=== PATIENT | male | born 1990 | race Caucasian/White ===

== ENCOUNTER 2020-03-08 08:02 | Emergency (ER) | payer OTHER ==
[2020-03-08] MEDS ORDERED: Amoxicillin/Clavulanate K 875-125 MG Tab PO ONE (08:30)
--- NOTE | 2020-03-08 08:32 | EDM.PDOC ---
ED [facility] GENERAL MEDICAL PROBLEM - General Chief Complaint: Bite:Animal, Insect Stated Complaint: DOG BITE Time Seen by Provider: 03/08/20 08:35 Source of Information: Reports: Patient History Limitations: Reports: No Limitations - History of Present Illness INITIAL COMMENTS - FREE TEXT/NARRATIVE: Patient is a 29-year-old male no significant past medical history presenting with chief complaint of dog bite. 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 He also obtained a superficial abrasion to his left knee but it experienced no other injuries. Onset of injury was just prior to arrival. Patient complains of moderate pain to the area without radiation. Pain is burning in nature. Tetanus is not up-to-date. The dog is a police dog and will be able to be observed. The dog is up-to- date on all rabies and other vaccinations. Pmhx: None Pshx: None Family Hx: noncontributory Smoking history? no Etoh use? Socially Drug use? none In addition to that documented in the HPI above, the additional ROS was obtained : Constitutional: Denies fevers or chills CV: Denies chest pain Resp: Denies SOB GI: Denies vomiting or diarrhea : Denies painful urination MSK: Denies recent trauma Skin: Per HPI I have reviewed the triage vital signs Const: Well nourished, well developed, appears stated age Eyes: PERRL, no conjunctival injection HENT: NCAT, Neck supple without meningismus CV: RRR, Warm, well-perfused extremities RESP: CTAB, Unlabored respiratory effort GI: soft, non-tender, non-distended, no masses MSK: No gross deformities appreciated Skin: Numerous superficial lacerations to the left lower back area. No foreign bodies visualized. No active bleeding noted. The wounds are well approximated. Additional superficial abrasion to the left lateral knee area. Warm, dry. 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 Sensation and motor function of extremities grossly intact. Psych: Appropriate mood and affect Assessment and plan: Patient is a 29-year-old male presenting with a dog bite. No indication for suturing at this time. No foreign bodies visualized. The wounds were copiously irrigated and a sterile dressing was applied. Patient updated tetanus and started on prophylactic antibiotics. Patient given return precautions. No other bodily trauma. Patient will be discharged instructed to follow-up with PCP in the next 1 to 2 days for wound recheck. All questions addressed and answered. Patient agrees with plan. - Related Data Allergies Allergy/AdvReac Type Severity Reaction Status Date / Time No Known Allergies Allergy Verified 04/24/16 23:42 Home Meds: Home Meds Amoxicillin/Potassium Clav [Augmentin 875-125 Tablet] 1 each PO Q12H #13 tablet 03/08/20 [Rx] Past Medical History - Past Surgical History GI Surgical History: Reports: Appendectomy Social & Family History - Family History Family Medical History: Noncontributory ED ROS GENERAL - Review of Systems Review Of Systems: See Below ED EXAM, ANIMAL BITE - Physical Exam Exam: See Below Course - Orders/Labs/Meds Meds: Medications Discontinued Medications Generic Name Dose Route Start Last Admin Trade Name Freq PRN Reason Stop Dose Admin Amoxicillin/Clavulanate Potassium 1 tab 03/08/20 08:30 Augmentin 875 Mg/125 Mg PO 03/08/20 08:31 ONETIME ONE Departure - Departure Time of Disposition: 08:31 Disposition: Home, Self-Care 01 Clinical Impression: Open wound of lower back due to dog bite - Discharge Information Prescriptions: Amoxicillin/Potassium Clav [Augmentin 875-125 Tablet] 1 each PO Q12H #13 tablet Instructions: Animal Bite, Adult, [id number] Referrals: PCP,None [Primary Care Provider] - Forms: ED Department Discharge Additional Instructions: The following information is given to patients seen in the emergency department who are being discharged to home. This information is to outline your options for follow-up care. We provide all patients seen in our emergency department with a follow-up referral. The need for follow-up, as well as the timing and circumstances, are variable depending upon the specifics of your emergency department visit. If you don't have a primary care physician on staff, we will provide you with a referral. We always advise you to contact your personal physician following an emergency department visit to inform them of the circumstance of the visit and for follow-up with them and/or the need for any referrals to a consulting specialist. The emergency department will also refer you to a specialist when appropriate. This referral assures that you have the opportunity for follow-up care with a specialist. All of these measure are taken in an effort to provide you with optimal care, which includes your follow-up. Under all circumstances we always encourage you to contact your private physician who remains a resource for coordinating your care. When calling for follow-up care, please make the office aware that this follow-up is from your recent emergency room visit. If for any reason you are refused follow-up, please contact the [facility] Emergency Department at and asked to speak to the emergency department charge nurse. Sepsis Event Note - Focused Exam Date Exam was Performed: 03/08/20 Time Exam was Performed: 08:35
[2020-03-08] MEDS ORDERED: Diphtheria,Pertussis(Acell),Tetanus Vaccine 0.5 ML Syringe IM ONE (08:35)
[2020-03-08] MEDS ORDERED: Bacitracin Oint 1 GM U/D Packet TOP ONE (08:36)
[2020-03-08 09:05] VITALS: BP 122/79; PULSE 82
== END 2020-03-08 09:06 | disposition home or self-care (01) ==
LOC: MW.ED 08:02
DX: S30.870A Other superficial bite of lower back and pelvis, initial encounter (principal); S80.272A Other superficial bite of left knee, initial encounter; Z23 Encounter for immunization; W54.0XXA Bitten by dog, initial encounter
CPT/HCPCS: 90471; 90715; 99283; A9270

== ENCOUNTER 2020-05-04 04:34 | Emergency (ER) | payer OTHER ==
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
[2020-05-04 06:53] VITALS: BP 128/78; PULSE 78
== END 2020-05-04 06:51 | disposition home or self-care (01) ==
LOC: MW.ED 04:34
DX: S00.83XA Contusion of other part of head, initial encounter (principal); Y04.0XXA Assault by unarmed brawl or fight, initial encounter; Y99.0 Civilian activity done for income or pay; Y92.89 Other specified places as the place of occurrence of the external cause
CPT/HCPCS: 70450; 70450-26; 70486; 70486-26; 99284; 99284-25

== ENCOUNTER 2021-08-21 12:34 | Emergency (ER) | payer OTHER ==
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
[2021-08-21 15:03] LABS: HIV12 AG/AB 4TH GEN W/REFLEX 0.2 INDEX (<1.0)
[2021-08-21 15:24] VITALS: BP 123/93; PULSE 85
== END 2021-08-21 13:48 | disposition home or self-care (01) ==
LOC: MW.ED 12:34
DX: Z77.21 Contact with and (suspected) exposure to potentially hazardous body fluids (principal)
CPT/HCPCS: 36415; 86706; 86803; 87340; 87389; 99283

== ENCOUNTER 2024-04-23 18:48 | Emergency (ER) | payer OTHER ==
[2024-04-23 20:06] VITALS: BP 114/83; PULSE 100
== END 2024-04-23 20:15 | disposition home or self-care (01) ==
LOC: MW.ED 18:48
DX: S89.92XA Unspecified injury of left lower leg, initial encounter (principal); Z86.16 Personal history of COVID-19; Z90.49 Acquired absence of other specified parts of digestive tract; Y04.2XXA Assault by strike against or bumped into by another person, initial encounter
CPT/HCPCS: 99283